=== PATIENT | female | born 1980 | race Caucasian/White ===

== ENCOUNTER → 2016-12-24 | Outpatient (CLI) | payer OTHER ==
[~2016-12-24] MED LIST: ASCO10003 PO; MULT-506 PO; NITR1CAP16 PO; OMEG10007 PO; OMEP40CA41 PO; PHEN-876 PO; PRED20TA PO; PROB1TAB16 PO; VITAMIN D PO; [UNRECOGNIZED DRUG - OTHER] PO
[2016-12-24 14:08] LABS: URINE APPEARANCE CLEAR (CLEAR); URINE BILIRUBIN NEG (NEG); URINE COLOR YELLOW; URINE NITRITE NEG (NEG); URINE SPECIFIC GRAVITY 1.009 (1.000-1.030); UROBILINOGEN NEG (NEG)
[2016-12-24 14:23] LABS: MANUAL MICROSCOPIC REQUIRED? NO; REVIEW REQ? NO
[2016-12-29 09:57] LABS: CHLAMYDIA TRACH RNA*** NOT DETECTED (NOT DETECTED); GC (NEIS GONORRHOEAE)RNA** NOT DETECTED (NOT DETECTED)
== END | disposition home or self-care (01) ==
LOC: C.LABSPEC 13:29
PROVIDERS: ATTEND Physician Assistant
DX: R30.0 Dysuria (principal); N94.89 Other specified conditions associated with female genital organs and menstrual cycle

== ENCOUNTER 2016-12-26 23:41 | Emergency (ER) | payer OTHER ==
[~2016-12-26] VITALS: Ht 167.6 cm; Wt 62.3 kg
[~2016-12-26 23:41] MED LIST changes: -NITR1CAP16 PO; -OMEG10007 PO; -PHEN-876 PO; -PRED20TA PO; -[UNRECOGNIZED DRUG - OTHER] PO
[2016-12-26 23:48] VITALS: TEMP 37; Ht 167.6 cm; Wt 62.3 kg
[2016-12-27] MEDS ORDERED: SODIUM CHLORIDE 0.9% 1000ML 1,000 ML IV STA (00:14)
[2016-12-27 00:36] LABS: BASO ABS # 0.07 K/uL (0-0.2); COMPLETE YES; EOS % 1.3 %; HEMATOCRIT 39.6 % (37-47); IG% 0.1 %; LYMPH % 42.7 %; LYMPH ABS # 2.94 K/uL (1.2-3.4); MEAN CELL VOLUME 96.4 fL (80-100); MEAN CORPUSCULAR HEMOGLOBIN 33.6 pg (25-34); MEAN CORPUSCULAR HGB CONC 34.8 g/dl (32-36); MEAN PLATELET VOLUME 8.9 fL (7.4-10.4); MONO % 11.2 %; NEUT % 43.7 %; PLATELET COUNT 297 K/uL (130-400); RED BLOOD COUNT 4.11 M/uL (4.2-5.4); WHITE BLOOD COUNT 6.89 K/uL (4.8-10.8)
[2016-12-27] MEDS ORDERED: NITR1CAP16 PO (00:36)
[2016-12-27] MEDS ORDERED: PHEN-876 PO (00:37)
[2016-12-27] MEDS ORDERED: [UNRECOGNIZED DRUG - OTHER] PO (00:39)
[2016-12-27 01:00] LABS: URINE APPEARANCE CLEAR (CLEAR); URINE BILIRUBIN NEG (NEG); URINE COLOR DK YELLOW; URINE EPITHELIAL CELL AUTO 0-5 /lpf (0-5); URINE NITRITE POS (NEG); URINE PH 6.5 (4.5-7.5); URINE SPECIFIC GRAVITY 1.009 (1.000-1.030); UROBILINOGEN NEG (NEG); ZZUR CULT IF INDIC CLEAN CATCH NO
[2016-12-27 01:01] LABS: BUN/CREATININE RATIO 17.2 (10-20); CALCIUM 8.6 mg/dl (8.5-10.1); CREATININE 0.79 mg/dl (0.60-1.20); POTASSIUM 3.5 mmol/L (3.5-5.1)
[2016-12-27 01:02] LABS: MANUAL MICROSCOPIC REQUIRED? NO; REVIEW REQ? NO
[2016-12-27 01:03] LABS: PREG INTERNAL NEGATIVE QC NEG CLEAR BACKGROUND; PREG INTERNAL POSITIVE QC POS CONTROL LINE
--- NOTE | 2016-12-27 03:17 | EMERGENCY ROOM VISIT NOTE ---
History First contact with patient: 00:04 Chief Complaint: ABDOMINAL PAIN Stated Complaint: ABDOMINAL AND PELVIC PAIN RIGHT SIDE History of Present Illness The patient is a 36 year old female who presents to the Emergency Room with complaints of urinary frequency with suprapubic discomfort for the past 4 days who saw urgent care and was given antibiotics possible UTI and then saw [facility] and had a pelvic exam and cultures done that are still pending. Patient is in a monogamous relationship. She does not feel at risk for STIs. She describes the pain as discomfort, 4-10. Nothing makes it better or worse. No history of similar symptoms in the past. No rashes. Patient denies chest pain , dyspnea, fever, chills, vomiting, diarrhea, vaginal itching or discharge, back pain, flank pain, upper abdominal pain. Review of Systems See HPI for pertinent positives & negatives. A total of 10 systems reviewed and were otherwise negative. Past Medical/Surgical History Ulcerative colitis Social History Smoking Status: Never Smoker Smokeless Tobacco Use: No Alcohol Use: occasionally Drug Use: none Marital Status: Housing Status: lives with family Current/Historical Medications Scheduled Multivitamin (Multivitamin), 1 TAB PO QAM Nitrofurantoin Monohyd Macro (Macrobid), 100 MG PO BID [Juice Plus Caps], 6 CAP PO DAILY Scheduled PRN Phenazopyridine HCl (Pyridium), 200 MG PO TID PRN for Bladder pain Allergies Coded Allergies: Mesalamine (Verified Allergy, Unknown, CANASA, 09/14/14) Penicillins (Verified Allergy, Unknown, AMOXICILLIN, 09/14/14) NSAIDs (Verified Adverse Reaction, Unknown, CAN'T TAKE DUE TO COLITIS, ) Physical Exam Vital Signs Date Time Temp Pulse Resp B/P Pulse Ox O2 Delivery O2 Flow Rate FiO2 12/27/16 01:23 80 16 99/69 95 Room Air 12/26/16 23:48 37.0 74 18 137/82 95 Room Air Physical Exam VITALS: Vitals are noted on the nurse's note and reviewed by myself. Vital signs stable. GENERAL: Pleasant female, in no acute distress, nondiaphoretic, well-developed well-nourished. SKIN: The skin was without rashes, erythema, edema, or bruising. There is no tenting of the skin. Capillary reflex less than 2 seconds. HEAD: Normocephalic atraumatic. EARS: External auditory canals clear, tympanic membranes pearly feldman without erythema or effusion bilaterally. EYES: Pupils equal round and reactive to light and accommodation. Conjunctivae without injection, sclerae without icterus. Extraocular movements intact. NOSE: Patent, turbinates without inflammation or discharge. MOUTH: Mucous membranes moist. Pharynx without erythema or exudate. Uvula midline. Airway patent. Tongue does not deviate. NECK: Supple without nuchal rigidity. No lymphadenopathy. No thyromegaly. Cervical spine is nontender. No JVD. HEART: Regular rate and rhythm without murmurs gallops or rubs. LUNGS: Clear to auscultation bilaterally without wheezes, rales or rhonchi. No dullness to percussion. No retractions or accessory muscle use. ABDOMEN: Positive bowel sounds x 4. Normal tympanic percussion. Soft, tender to palpation right lower suprapubic area, no CVA tenderness, without masses or organomegaly. Ball sign negative. No guarding or rebound tenderness. exam: Normal external female genitalia without rashes, slightly erythematous cervix, right adnexal tender to palpation easily reproducing symptoms, no CMT tenderness. 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 MUSCULOSKELETAL: No muscle atrophy, erythema, or edema noted. NEURO: Patient was alert and oriented to person place and time. Normal sensation to light and sharp touch. No focal neurological deficits. Medical Decision & Procedures Laboratory Results 12/27/16 00:05 Red Blood Count 4.11, Mean Corpuscular Volume 96.4, Mean Corpuscular Hemoglobin 33.6, Mean Corpuscular Hemoglobin Concent 34.8, Mean Platelet Volume 8.9, Neutrophils (%) (Auto) 43.7, Lymphocytes (%) (Auto) 42.7, Monocytes (%) (Auto) 11.2, Eosinophils (%) (Auto) 1.3, Basophils (%) (Auto) 1.0, Neutrophils # (Auto ) 3.01, Lymphocytes # (Auto) 2.94, Monocytes # (Auto) 0.77, Eosinophils # (Auto ) 0.09, Basophils # (Auto) 0.07 12/27/16 00:05 Test 12/27/16 00:00 12/27/16 00:05 Urine Color DK YELLOW Urine Appearance CLEAR (CLEAR) Urine pH 6.5 (4.5-7.5) Urine Specific Sheldon 1.009 (1.000-1.030) Urine Protein NEG (NEG) Urine Glucose (UA) NEG (NEG) Urine Ketones NEG (NEG) Urine Occult Blood NEG (NEG) Urine Nitrite POS (NEG) Urine Bilirubin NEG (NEG) Urine Urobilinogen NEG (NEG) Urine Leukocyte Esterase NEG (NEG) Urine WBC (Auto) 0 /hpf (0-5) Urine RBC (Auto) 10-30 /hpf (0-4) Urine Hyaline Casts (Auto) 0 /lpf (0-5) Urine Epithelial Cells (Auto) 0-5 /lpf (0-5) Urine Bacteria (Auto) NEG (NEG) White Blood Count 6.89 K/uL (4.8-10.8) Red Blood Count 4.11 M/uL (4.2-5.4) Hemoglobin 13.8 g/dL (12.0-16.0) Hematocrit 39.6 % (37-47) Mean Corpuscular Volume 96.4 fL (80-100) Mean Corpuscular Hemoglobin 33.6 pg (25-34) Mean Corpuscular Hemoglobin Concent 34.8 g/dl (32-36) Platelet Count 297 K/uL (130-400) Mean Platelet Volume 8.9 fL (7.4-10.4) Neutrophils (%) (Auto) 43.7 % Lymphocytes (%) (Auto) 42.7 % Monocytes (%) (Auto) 11.2 % Eosinophils (%) (Auto) 1.3 % Basophils (%) (Auto) 1.0 % Neutrophils # (Auto) 3.01 K/uL (1.4-6.5) Lymphocytes # (Auto) 2.94 K/uL (1.2-3.4) Monocytes # (Auto) 0.77 K/uL (0.11-0.59) Eosinophils # (Auto) 0.09 K/uL (0-0.5) Basophils # (Auto) 0.07 K/uL (0-0.2) RDW Standard Deviation 43.1 fL (36.4-46.3) RDW Coefficient of Variation 12.3 % (11.5-14.5) Immature Granulocyte % (Auto) 0.1 % Immature Granulocyte # (Auto) 0.01 K/uL (0.00-0.02) Anion Gap 8.0 mmol/L (3-11) Est Creatinine Clear Calc Drug Dose 90.3 ml/min Estimated GFR () 110.1 Estimated GFR (Non- 95.0 BUN/Creatinine Ratio 17.2 (10-20) Calcium Level 8.6 mg/dl (8.5-10.1) Human Chorionic Gonadotropin, Qual NEG (NEG) Medications Administered Medications (Trade) Dose Ordered Sig/Ronit Route Start Time Stop Time Status Last Admin Dose Admin Sodium Chloride (Nss 1000ml) 1,000 ml @ 125 mls/hr Q8H STAT IV 12/27/16 00:14 12/27/16 08:13 12/27/16 00:30 125 MLS/HR ED Course Prior records/ancillary studies reviewed. Triage Nursing notes reviewed. The patient's history was concerning for suprapubic abdominal pain. Differential diagnosis: Etiologies such as ovarian cyst, ovarian torsion, cystocele, rectocele, appendicitis, diverticulitis, PUD, biliary pathology, UTI, pancreatitis, obstruction, mesenteric ischemia, aortic pathology, infections, inflammatory bowel disease, renal colic, as well as others were entertained. Physical examination findings: As above. ER treatment provided: By mouth fluids On reassessment the patient felt better. Diagnostics interpreted by me: The labs revealed no worrisome leukocytosis or electrolyte abnormality. Negative hCG. Hematuria urinalysis Imaging studies: Ultrasound concerning for right corpus luteal cyst of the right ovary. Negative renal ultrasound per radiology Exam and history seem consistent with right ovarian cyst. Patient had reproducible pain on clinical exam during exam. Right adnexal was exquisitely tender to palpation. HCG is negative. No signs of PID. She is advised to follow back up with her [facility] this week or here in the ER sooner for pain, fevers, stretch, worsening signs or symptoms or as needed. Patient did not have acute abdomen on exam. She is well-appearing. She is in a monogamous relationship and does not feel at risk for STIs. By the evaluation outlined above emergent etiologies such as appendicitis, diverticulitis, PUD, biliary pathology, UTI, pancreatitis, obstruction, mesenteric ischemia, aortic pathology, infections, inflammatory bowel disease, renal colic, as well as others were deemed relatively unlikely. The pt informed about the findings as listed above. All questions were answered and pleased with the treatment. Return instructions were outlined and the patient was discharged in stable condition. Referral: The patient was referred back to their primary care physician and [facility] for follow-up in 2 to 3 days for a recheck of the current condition. Case reviewed with my attending Medical Decision As above Impression Primary Impression: Right ovarian cyst Additional Impression: Suprapubic abdominal pain Departure Information Dispostion Home / Self-Care Condition GOOD Referrals Armand Gaines DO (PCP) Patient Instructions My [facility] Additional Instructions Ibuprofen(Motrin, Advil) may be used for fever or pain. Use 600mg every six hours as needed. Take with food. Avoid using more than 2400mg in a 24 hour period. Do not use 2400mg per day for more than three consecutive days without physician direction. Prolonged inappropriate use can lead to stomach upset or ulcers. (AND/OR) Acetaminophen(Tylenol) may be used for fever or pain. Use 1000mg every six hours as needed. Avoid using more than 3000mg in a 24 hour period. Rest and drink plenty of fluids as tolerated. Continue current medications. Avoid strenuous activities and anything that worsens your pain. Resume normal activities once your symptoms resolve. Return to the ER immediately for worsening or persistent abdominal pain, vomiting, fevers, chest pains, difficulty breathing, worsening of your condition , or as needed. Follow up with your primary physician and [facility] in 2-3 days for a recheck of your current condition. Problem Qualifiers
[2016-12-27] MEDS ORDERED: LIDOCAINE HCL 2% JELLY 30 ML TUBE EXT ONE (03:45)
[2016-12-27 04:04] VITALS: BP 116/72; PULSE 66; O2SAT 96
--- NOTE | 2016-12-27 09:09 | DIAGNOSTIC IMAGING REPORT ---
PELVIC ULTRASOUND CLINICAL HISTORY: Right pelvic pain. COMPARISON STUDY: CT of the abdomen and pelvis August 17, 2014. TECHNIQUE: Transabdominal and transvaginal sonography of the pelvis was performed. FINDINGS: The uterus measures 7.8 x 4.3 x 5 cm. The endometrium measures 7 mm in thickness. The right ovary measures 3.1 x 1.8 x 2.2 cm contains a 1.6 cm complex lesion. The left ovary measures 2.6 x 1.5 x 1.9 cm. There is color flow within each ovary. There is trace fluid within the pelvis. IMPRESSION: 1. Unremarkable sonographic appearance of the uterus and left ovary. 2. 1.6 cm corpus luteal/hemorrhagic cyst within the right ovary. 3. Trace fluid within the pelvis which is likely physiologic. Electronically signed by: Oc Hill M.D. 12/27/2016 9:07 AM Dictated Date/Time: 12/27/2016 9:06 AM
--- NOTE | 2016-12-27 09:21 | DIAGNOSTIC IMAGING REPORT ---
RENAL ULTRASOUND CLINICAL HISTORY: Hematuria. Right lower quadrant pain. COMPARISON STUDY: CT of the abdomen and pelvis August 17, 2017. TECHNIQUE: Sonography of the kidneys and the urinary bladder was performed. FINDINGS: The right kidney measures 10.6 x 4.6 x 5.3 cm and the left measures 10.5 x 5.6 x 4.6 cm. There is no hydronephrosis. No calculi are identified by sonography. Both ureteral jets were identified. IMPRESSION: Normal renal ultrasound. No hydronephrosis. Electronically signed by: Oc Hill M.D. 12/27/2016 9:20 AM Dictated Date/Time: 12/27/2016 9:19 AM
== END 2016-12-27 04:05 | disposition home or self-care (01) ==
LOC: C.EDB 23:42 → C.EDA 12-27 04:05
DX: N83.201 Unspecified ovarian cyst, right side (principal); R10.30 Lower abdominal pain, unspecified; Z87.19 Personal history of other diseases of the digestive system

== ENCOUNTER → 2017-01-04 | Outpatient (CLI) | payer OTHER ==
[~2017-01-04] MED LIST changes: -ASCO10003 PO; +NITR1CAP16 PO; +OMEG10007 PO; -OMEP40CA41 PO; +PHEN-876 PO; +PRED20TA PO; -PROB1TAB16 PO; -VITAMIN D PO; +[UNRECOGNIZED DRUG - OTHER] PO
[2017-01-04 17:07] LABS: URINE APPEARANCE CLEAR (CLEAR); URINE BILIRUBIN NEG (NEG); URINE COLOR YELLOW; URINE EPITHELIAL CELL AUTO 0-5 /lpf (0-5); URINE NITRITE NEG (NEG); URINE SPECIFIC GRAVITY 1.012 (1.000-1.030); UROBILINOGEN NEG (NEG)
[2017-01-04 17:15] LABS: MANUAL MICROSCOPIC REQUIRED? NO; REVIEW REQ? NO
== END | disposition home or self-care (01) ==
LOC: C.LAB1850 14:06
PROVIDERS: ATTEND Obstetrics & Gynecology
DX: R35.0 Frequency of micturition (principal); N76.0 Acute vaginitis; Z31.41 Encounter for fertility testing

== ENCOUNTER 2017-01-12 08:26 | Emergency (ER) | payer OTHER ==
[~2017-01-12] VITALS: Ht 167.6 cm; Wt 60.3 kg
[~2017-01-12 08:26] MED LIST changes: -OMEG10007 PO; -PRED20TA PO
[2017-01-12 08:28] VITALS: TEMP 36.6; Ht 167.6 cm; Wt 60.3 kg
[2017-01-12] MEDS ORDERED: RANITIDINE HCL 50 MG/100 ML D5W IV STA (08:42)
[2017-01-12] MEDS ORDERED: METHYLPREDNISOLONE 125 MG VIAL IV STA (08:42)
[2017-01-12] MEDS ORDERED: DiphenhydrAMINE HCL 50 MG/ML VIAL IV STA (08:42)
--- NOTE | 2017-01-12 09:02 | EMERGENCY ROOM VISIT NOTE ---
History Report prepared by Ivory: Dmitriy Hdz Under the Supervision of: Dr. Lavon Renner D.O. First contact with patient: 08:41 Chief Complaint: ALLERGIC REACTION Stated Complaint: HIVES, SWELLING, ITCHING Nursing Triage Summary: pt reports hives started on Sat. denies difficulty breathing or swallowing, last benedryl 0200 stopped macrobid on Sun. History of Present Illness The patient is a 36 year old female who presents to the Emergency Room with complaints of worsening/spreading diffuse hives that began on Wednesday, three days prior to arrival. The patient states that her symptoms began on Wednesday when she became diffusely itchy. He started to notice the rash on Wednesday. She denies experiencing any swelling of the throat or tongue, or experiencing shortness of breath. The patient also denies using any new soaps, detergents, or strange foods. She did note that she recently started taking Macrobid, but was advised to stop this medication when the itching began. 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 A total of 10 systems reviewed and were otherwise negative. Past Medical & Surgical Medical Problems: (1) Ulcerative colitis Family History Cancer Gallbladder disease Heart disease Hypertension Kidney disease Social History Smoking Status: Never Smoker Alcohol Use: occasionally Drug Use: none Marital Status: Housing Status: lives with family Current/Historical Medications Scheduled Fish Oil (Stanwood-3), 1 CAP PO DAILY Multivitamin (Multivitamin), 1 TAB PO QAM Prednisone (Prednisone), 2 TAB PO DAILY [Juice Plus Caps], 6 CAP PO DAILY Allergies Coded Allergies: Mesalamine (Verified Allergy, Unknown, CANASA, 01/12/17) Penicillins (Verified Allergy, Unknown, AMOXICILLIN, 01/12/17) NSAIDs (Verified Adverse Reaction, Unknown, CAN'T TAKE DUE TO COLITIS, ) Physical Exam Vital Signs Date Time Temp Pulse Resp B/P (MAP) Pulse Ox O2 Delivery O2 Flow Rate FiO2 01/12/17 09:47 71 16 111/72 100 01/12/17 08:28 36.6 76 18 116/82 100 Room Air Physical Exam CONSTITUTIONAL/VITAL SIGNS: Reviewed / noted above. GENERAL: Non-toxic in appearance. INTEGUMENTARY: There is a diffuse and global urticarial rash present. Warm, dry , and Tracy. HEAD: Normocephalic. EYES: without scleral icterus or trauma. ENT/OROPHARYNX: clear and moist. LYMPHADENOPATHY/NECK: Is supple without lymphadenopathy or meningismus. RESPIRATORY: Lungs clear and equal. CARDIOVASCULAR: Regular rate and rhythm. GI/ABDOMEN: Soft and nontender. No organomegaly or pulsatile mass. No rebound or guarding. Normal bowel sounds. EXTREMITIES: Warm and well perfused. BACK: No CVA tenderness. NEUROLOGICAL: Intact without focal deficits. PSYCHIATRIC: normal affect. MUSCULOSKELETAL: Normally developed with good muscle tone. Medical Decision & Procedures Laboratory Results 01/12/17 08:50 01/12/17 08:50 Test 01/12/17 08:10 01/12/17 08:50 Lyme Disease IgG Antibody NEG (NEG) Lyme Disease IgM Antibody NEG (NEG) Red Blood Count 4.58 M/uL (4.2-5.4) Mean Corpuscular Volume 95.0 fL (80-100) Mean Corpuscular Hemoglobin 33.4 pg (25-34) Mean Corpuscular Hemoglobin Concent 35.2 g/dl (32-36) RDW Standard Deviation 42.5 fL (36.4-46.3) RDW Coefficient of Variation 12.3 % (11.5-14.5) Mean Platelet Volume 8.7 fL (7.4-10.4) Anion Gap 9.0 mmol/L (3-11) Est Creatinine Clear Calc Drug Dose 95.1 ml/min Estimated GFR () 117.2 Estimated GFR (Non- 101.1 BUN/Creatinine Ratio 14.1 (10-20) Calcium Level 8.7 mg/dl (8.5-10.1) Laboratory results as stated above per my review. Medications Administered Medications (Trade) Dose Ordered Sig/Ronit Route Start Time Stop Time Status Last Admin Dose Admin Ranitidine HCl (zANTac IV) 50 mg NOW STAT IV 01/12/17 08:42 01/12/17 08:43 DC 01/12/17 08:59 50 MG Diphenhydramine HCl (Benadryl Inj) 25 mg NOW STAT IV 01/12/17 08:42 01/12/17 08:43 DC 01/12/17 08:59 25 MG ED Course 0919: Previous medical records were reviewed. The patient was evaluated in room B9. A complete history and physical examination was performed. 0842: Ordered Benadryl 25 mg IV, Solu-Medrol 125 mg IV, Ranitidine HCl 50 mg IV. 1049: I reevaluated the patient at this time On reevaluation, the patient is resting in bed. I discussed the results and findings with the patient. She verbalized agreement of the treatment plan. The patient was discharged home. Medical Decision Blood pressure Screening: Patient was found to have normal blood pressure on screening and does not require follow-up. Differential diagnosis: Etiologies such as contact dermatitis, viral exanthem, urticaria, allergic reaction, Garay-Niranjan syndrome, toxic epidermal necrolysis, erythema multiforme, cellulitis, scabies, HSV, varicella, zoster, eczema, staph scalded skin syndrome, fungal infection, as well as others were entertained. This is a 28-year-old female who presents to the ED with a chief complaint of a hive-like rash on her body. The patient states that she took Macrobid over week ago and then took a second course of Macrobid starting the end of last week. She started feeling a little itchy on Wednesday and on Wednesday noticed hives. She stopped the medication Macrobid on Wednesday. She denies any other exposures other than a new multivitamin. The patient did take some Benadryl with some relief on Wednesday but less relief today and yesterday. She reports also having taken some Zantac. The patient's exam reveals a hive-like rash on her chest, back and proximal upper extremities. She denies any shortness of breath or mucosal irritation or swelling. Her exam reveals the rash on her body without mucosal irritation. She was given IV Benadryl and IV Zantac. There was some lessening of the redness. It did not completely resolve. The patient was told the results of her tests. Her CBC, PRP and Lyme was normal. The patient did not want to use steroids because she is trying to get and states that she ovulated this weekend. The test was negative but the patient declined a steroid at this time due to it being class C. The patient will be given a prescription for prednisone if she decides that her symptoms are not improving or worsen despite Benadryl and Zantac at home. She is felt to be stable for discharge. Impression Primary Impression: Allergic reaction Scribe Attestation The scribe's documentation has been prepared under my direction and personally reviewed by me in its entirety. I confirm that the note above accurately reflects all work, treatment, procedures, and medical decision making performed by me. Departure Information Dispostion Home / Self-Care Prescriptions Prednisone (Prednisone) 20 Mg Tab 2 TAB PO DAILY for 4 Days, #8 TAB Prov: Lavon Renner D.O. 01/12/17 Referrals Armand Gaines DO (PCP) Patient Instructions My [facility] Additional Instructions Take Benadryl 25-50 mg every 6 hours for hives and itching. Take Zantac. Prednisone as prescribed if symptoms worsen or persist. Follow-up with your doctor for recheck. Anticipate improvement of symptoms over the next 3-4 days.
[2017-01-12 09:13] LABS: HEMATOCRIT 43.5 % (37-47); MEAN CORPUSCULAR HEMOGLOBIN 33.4 pg (25-34); MEAN CORPUSCULAR HGB CONC 35.2 g/dl (32-36); MEAN PLATELET VOLUME 8.7 fL (7.4-10.4); PLATELET COUNT 317 K/uL (130-400); RED BLOOD COUNT 4.58 M/uL (4.2-5.4); WHITE BLOOD COUNT 11.62 K/uL (4.8-10.8)
[2017-01-12] MEDS ORDERED: OMEG10007 PO (09:16)
[2017-01-12 09:31] LABS: BUN/CREATININE RATIO 14.1 (10-20); CREATININE 0.75 mg/dl (0.60-1.20); POTASSIUM 3.9 mmol/L (3.5-5.1)
[2017-01-12 09:36] LABS: CALCIUM 8.7 mg/dl (8.5-10.1)
[2017-01-12 10:13] LABS: LYME DISEASE AB IGG NEG (NEG); LYME DISEASE AB IGM NEG (NEG)
[2017-01-12] MEDS ORDERED: PRED20TA PO (10:58)
[2017-01-12 11:11] VITALS: BP 97/53; PULSE 65; O2SAT 99
== END 2017-01-12 11:11 | disposition home or self-care (01) ==
LOC: C.EDB 08:28
DX: T78.40XA Allergy, unspecified, initial encounter (principal); X58.XXXA Exposure to other specified factors, initial encounter; Z87.19 Personal history of other diseases of the digestive system; Z88.0 Allergy status to penicillin; Z88.8 Allergy status to other drugs, medicaments and biological substances; Z80.9 Family history of malignant neoplasm, unspecified; Z83.79 Family history of other diseases of the digestive system; Z82.49 Family history of ischemic heart disease and other diseases of the circulatory system; Z84.1 Family history of disorders of kidney and ureter

== ENCOUNTER → 2017-01-21 | Outpatient (CLI) | payer OTHER ==
[~2017-01-21] MED LIST changes: -NITR1CAP16 PO; +OMEG10007 PO; -PHEN-876 PO
== END | disposition home or self-care (01) ==
LOC: C.LAB 10:35
PROVIDERS: ATTEND Obstetrics & Gynecology
DX: Z31.41 Encounter for fertility testing (principal); Z32.00 Encounter for pregnancy test, result unknown

== ENCOUNTER → 2017-01-25 | Outpatient (CLI) | payer OTHER | END | disposition home or self-care (01) | LOC: C.LAB 12:02 | PROVIDERS: ATTEND Obstetrics & Gynecology | DX: Z33.1 Pregnant state, incidental (principal) ==

== ENCOUNTER → 2017-02-22 | Outpatient (CLI) | payer OTHER ==
[2017-02-22 12:33] LABS: BASO % 0.5 %; BASO ABS # 0.04 K/uL (0-0.2); COMPLETE YES; EOS % 0.9 %; HEMATOCRIT 38.6 % (37-47); IG% 0.1 %; LYMPH % 20.4 %; LYMPH ABS # 1.76 K/uL (1.2-3.4); MEAN CELL VOLUME 93.2 fL (80-100); MEAN CORPUSCULAR HEMOGLOBIN 33.6 pg (25-34); MEAN PLATELET VOLUME 8.7 fL (7.4-10.4); MONO % 9.2 %; NEUT % 68.9 %; PLATELET COUNT 304 K/uL (130-400); RED BLOOD COUNT 4.14 M/uL (4.2-5.4); WHITE BLOOD COUNT 8.62 K/uL (4.8-10.8)
== END | disposition home or self-care (01) ==
LOC: C.LAB1850 10:26
PROVIDERS: ATTEND Obstetrics & Gynecology
DX: O09.521 Supervision of elderly multigravida, first trimester (principal)

== ENCOUNTER → 2017-02-22 | Outpatient (CLI) | payer OTHER ==
[2017-02-22 14:37] LABS: URINE APPEARANCE CLEAR (CLEAR); URINE BILIRUBIN NEG (NEG); URINE COLOR YELLOW; URINE NITRITE NEG (NEG); URINE SPECIFIC GRAVITY 1.011 (1.000-1.030); UROBILINOGEN NEG (NEG)
[2017-02-22 14:40] LABS: MANUAL MICROSCOPIC REQUIRED? NO; REVIEW REQ? NO
[2017-02-25 02:02] LABS: CHLAMYDIA TRACH RNA*** NOT DETECTED (NOT DETECTED); GC (NEIS GONORRHOEAE)RNA** NOT DETECTED (NOT DETECTED)
== END | disposition home or self-care (01) ==
LOC: C.LABSPEC 13:44
PROVIDERS: ATTEND Obstetrics & Gynecology
DX: O09.521 Supervision of elderly multigravida, first trimester (principal)

== ENCOUNTER → 2017-03-04 | Outpatient (CLI) | payer OTHER ==
[2017-03-07 19:34] LABS: PARVOVIRUS IgG INDEX 5.9 (<0.9); PARVOVIRUS IgM INDEX 0.2 (<0.9)
== END | disposition home or self-care (01) ==
LOC: C.LAB1850 12:26
PROVIDERS: ATTEND Obstetrics & Gynecology
DX: Z20.9 Contact with and (suspected) exposure to unspecified communicable disease (principal)

== ENCOUNTER → 2017-04-20 | Outpatient (CLI) | payer OTHER ==
[2017-04-20 13:13] LABS: GTGD 50 Grams
[2017-04-21 14:12] LABS: AFP CONCENTRATION 20.6 NG/ML; AFP MULTIPLE OF MEDIAN 0.59; AFPTS GESTATIONAL AGE 16.1 WEEKS; AFPTS INSULIN DEP DIABETIC? NO; AFPTS MATERNAL WT 140 LBS; ALPHA-FETOPROTEIN RACE CAUCASIAN=W; HISTORY OF NTD NO; REPEAT SAMPLE? NO
== END | disposition home or self-care (01) ==
LOC: C.LAB1850 10:37
PROVIDERS: ATTEND Obstetrics & Gynecology
DX: O09.522 Supervision of elderly multigravida, second trimester (principal)

== ENCOUNTER → 2017-07-12 | Outpatient (CLI) | payer OTHER ==
[2017-07-12 11:30] LABS: URINE APPEARANCE CLEAR (CLEAR); URINE BILIRUBIN NEG (NEG); URINE COLOR YELLOW; URINE NITRITE NEG (NEG); URINE PH 8.5 (4.5-7.5); UROBILINOGEN NEG (NEG)
[2017-07-12 11:32] LABS: MANUAL MICROSCOPIC REQUIRED? NO; REVIEW REQ? NO
[2017-07-12 12:24] LABS: HEMATOCRIT 33.9 % (37-47)
[2017-07-12 12:45] LABS: GTGD 50 Grams
== END | disposition home or self-care (01) ==
LOC: C.LAB 10:51
PROVIDERS: ATTEND Obstetrics & Gynecology
DX: O09.523 Supervision of elderly multigravida, third trimester (principal)

== ENCOUNTER → 2017-09-06 | Outpatient (CLI) | payer OTHER | END | disposition home or self-care (01) | LOC: C.LABSPEC 13:09 | PROVIDERS: ATTEND Obstetrics & Gynecology | DX: O09.523 Supervision of elderly multigravida, third trimester (principal) ==

== ENCOUNTER 2017-10-08 17:41 | Inpatient (IN) | payer OTHER ==
[~2017-10-08] VITALS: Ht 167.6 cm; Wt 75.5 kg
[2017-10-08] MEDS ORDERED: LACTATED RINGER'S 1000ML 1,000 ML IV SCH (18:06)
[2017-10-08] MEDS ORDERED: LACTATED RINGER'S 1000ML 1,000 ML IV PRN (18:06)
[2017-10-08 18:39] VITALS: Ht 167.6 cm; Wt 75.5 kg
[2017-10-08 18:48] LABS: HEMATOCRIT 34.2 % (37-47); HEMOGLOBIN 12.5 g/dL (12.0-16.0); MEAN CELL VOLUME 90.7 fL (80-100); MEAN CORPUSCULAR HEMOGLOBIN 33.2 pg (25-34); MEAN PLATELET VOLUME 9.1 fL (7.4-10.4); PLATELET COUNT 285 K/uL (130-400); RED CELL DISTRIBUTION WIDTH CV 12.4 % (11.5-14.5); RED CELL DISTRIBUTION WIDTH SD 41.1 fL (36.4-46.3); WHITE BLOOD COUNT 13.16 K/uL (4.8-10.8)
[2017-10-08] MEDS ORDERED: EpHEDrine SULFATE INJ 50 MG/ML AMP ONE (18:52)
[2017-10-08] MEDS ORDERED: BUPIVACAINE 0.25% 30 ML VIAL ONE (18:52)
[2017-10-08] MEDS ORDERED: FENTANYL 2MCG/ML ROPIV 1.25MG/ML 100ML BAG EPI ONE (18:53)
[2017-10-08] MEDS ORDERED: FENTANYL CITRATE INJ 50 MCG/1 ML 2 ML VIAL ONE (18:53)
[2017-10-08] MEDS ORDERED: OXYTOCIN 30 UNITS/500ML NSS IV ONE (19:14)
[2017-10-08] MEDS ORDERED: LACTATED RINGER'S 1000ML 500 ML IV PRN (19:48)
[2017-10-08] MEDS ORDERED: NALOXONE HCL INJ 1 MG in SODIUM CHLORIDE 0.9% 1000ML 1,000 ML IV PRN (19:48)
[2017-10-08 19:49] LABS: MEAN CORPUSCULAR HGB CONC 36.5 g/dl (32-36)
[2017-10-08] MEDS ORDERED: NALBUPHINE HCL INJ 10 MG/ML AMP IV PRN (20:00)
[2017-10-08] MEDS ORDERED: EpHEDrine SULFATE INJ 50 MG/ML AMP IV PRN (20:00)
[2017-10-08] MEDS ORDERED: FENTANYL 2MCG/ML ROPIV 1.25MG/ML 100ML BAG EPI PRN (20:00)
[2017-10-08] MEDS ORDERED: DiphenhydrAMINE HCL 50 MG/ML VIAL IV PRN (20:00)
[2017-10-08] MEDS ORDERED: NALOXONE HCL INJ 0.4 MG/1 ML VIAL/CARP IV PRN (20:00)
[2017-10-08] MEDS ORDERED: ONDANSETRON INJ 2 MG/ML 2 ML VIAL IV PRN (20:00)
[2017-10-08] MEDS ORDERED: VARICELLA VIRUS VACCINE LIVE 1 VIAL SQ. ONE (21:00)
[2017-10-08] MEDS ORDERED: DIPHTHERIA/TETANUS/PERTUSSIS 0.5 ML SYR/VIAL IM. ONE (21:00)
[2017-10-08] MEDS ORDERED: SUPERCREAM 0.870 % 15GM JAR EXT PRN (21:00)
[2017-10-08] MEDS ORDERED: ACETAMINOPHEN 325 MG TAB PO PRN (21:00)
[2017-10-08] MEDS ORDERED: OXYTOCIN 30 UNITS/500ML NSS IV PRN (21:00)
[2017-10-08] MEDS ORDERED: HYDROCORTISONE ACETATE 25 MG SUPP PR PRN (21:00)
[2017-10-08] MEDS ORDERED: LANOLIN OINT EXT PRN (21:00)
[2017-10-08] MEDS ORDERED: BENZOCAINE 20% AER SPR 82.5 GM CAN EXT PRN (21:00)
[2017-10-08] MEDS ORDERED: OXYCODONE/ACETAMINOPHEN 5-325 TAB PO PRN (21:00)
--- NOTE | 2017-10-08 22:34 | DELIVERY SUMMARY ---
DATE OF OPERATION: 10/08/2017 The patient is a 37-year-old 3, para 2-0-0-2 white female who presents with regular contractions starting approximately at 1400 hours today. She had had an increase in discharge, bloody show and possible leaking fluid. She presented to labor and delivery and was noted to be 4 cm dilated, 80% effaced and -2 station evidence of ruptured membranes was equivocal. She progressed in labor, requested epidural analgesia and then clearly had rupture of membranes for clear fluid when setting up for the epidural. She progressed to full dilatation under epidural analgesia and pushed effectively for delivery of a viable female . Mouth and nasopharynx were suctioned on the perineum. Rest of the delivered easily and was vigorous. She was placed on the mother's abdomen for further stimulation and evaluation. The cord was clamped and cut. Cord blood was obtained. The placenta was expressed intact with a 3-vessel cord. There was a very superficial labial abrasion present that was not bleeding and was not repaired. Estimated blood loss was 200 mL. Mother and were doing well after delivery. I attest to the content of the Intraoperative Record and any orders documented therein. Any exceptions are noted below. MTDD
[2017-10-09] VITALS (7 sets, daily range): BP systolic 102–115; BP diastolic 61–72; PULSE 65–82; TEMP 36.8–37.2
--- NOTE | 2017-10-09 06:51 | Progress Note ---
Subjective Oct 09, 2017. Subjective conversation w/ patient, physical exam Ambulation: ambulating normally Voiding: no voiding problems Passing Gas: Yes Diet Tolerance: Regular Diet Lochia: Moderate Feeding Type: Breast Feeding Pain: Minimal pain reported Comment: Pt seen and examined at bedside this AM; no acute events overnight Review of Systems Constitutional: No fever, No chills Respiratory: No cough, No shortness of breath Cardiac: No chest pain, No edema Abdomen: No pain, No nausea, No vomiting Female : No dysuria no headaches or calf tenderness reported Objective Vital Signs Date Time Temp Pulse Resp B/P (MAP) Pulse Ox O2 Delivery O2 Flow Rate FiO2 10/09/17 05:30 37.0 66 18 110/72 (85) Room Air 10/09/17 01:35 Room Air 10/09/17 01:35 37.2 69 16 106/61 (76) Room Air Physical Exam General Appearance: WELL-APPEARING, WD/WN, NO APPARENT DISTRESS Respiratory/Chest: chest non-tender, lungs clear, normal breath sounds Cardiovascular: regular rate, rhythm, no edema, no murmur Abdomen: normal bowel sounds, non tender, soft Fundus: Firm, Non-Tender, Relation to Umbilicus (2-3 cm below, left sided) Extremities: normal range of motion, non-tender, normal inspection, no pedal edema, no calf tenderness Laboratory Results Last 24 Hours Test 10/08/17 18:29 10/09/17 04:44 White Blood Count 13.16 K/uL Red Blood Count 3.77 M/uL Hemoglobin 12.5 g/dL Hematocrit 34.2 % Mean Corpuscular Volume 90.7 fL Mean Corpuscular Hemoglobin 33.2 pg Mean Corpuscular Hemoglobin Concent 36.5 g/dl RDW Standard Deviation 41.1 fL RDW Coefficient of Variation 12.4 % Platelet Count 285 K/uL Mean Platelet Volume 9.1 fL Medications Current Inpatient Medications Medications (Trade) Dose Ordered Sig/Ronit Route Start Time Stop Time Status Last Admin Dose Admin Lactated Ringer's 1,000 ml @ 125 mls/hr Q8H IV 10/08/17 18:06 10/10/17 18:05 Oxytocin (Pitocin IV) 30 units UD PRN IV 10/08/17 21:00 11/07/17 20:59 Benzocaine (Dermoplast Aero Spr) 1 appln PRN PRN EXT 10/08/17 21:00 11/07/17 20:59 Cocaine HCl (Supercream 0.870% Cr) BID PRN EXT 10/08/17 21:00 10/22/17 20:59 Hydrocortisone Acetate (Anusol Hc Supp) 25 mg BID PRN MA 10/08/17 21:00 11/07/17 20:59 Lanolin (Lanolin Oint) PRN PRN EXT 10/08/17 21:00 11/07/17 20:59 Prenat Multivit/ [place]/Iron/Folic Ac ( Vitamin Tab) 1 tab DAILY PO 10/09/17 08:00 11/08/17 07:59 Acetaminophen (Tylenol Tab) 650 mg Q6H PRN PO 10/08/17 21:00 11/07/17 20:59 Oxycodone/ Acetaminophen (Percocet 5-325mg Tab) 1 tab Q4H PRN PO 10/08/17 21:00 10/22/17 20:59 Bisacodyl (Dulcolax Tab) 5 mg 20 PO 10/09/17 20:00 10/09/17 20:01 Bisacodyl (Dulcolax Supp) 10 mg DAILY PRN MA 10/10/17 07:00 Docusate Sodium (coLACE CAP) 100 mg BID PO 10/09/17 08:00 11/08/17 07:59 Ferrous Sulfate (Feosol Tab) 325 mg DAILY PO 10/09/17 08:00 11/08/17 07:59 Multivitamins (Multivitamin Tab) 1 tab QAM PO 10/09/17 08:00 11/08/17 07:59 Assessment and Plan Problem List Medical Problems: (1) Allergic reaction Status: Acute (2) Right ovarian cyst Status: Acute (3) Suprapubic abdominal pain Status: Acute Post- Day#: 1 Continue Routine Care: Resident Physician Supervision Note: I was present with Dr. Pearson during the history and exam. I discussed the case with the resident and agree with the findings and plan as documented in the note. Any exceptions or clarifications are listed here: [None] Documented By: Shwetha Simon 37 yo F PPD #1 s/p Continue routine care Encourage ambulation, breast feeding--discuss latching issues with autism specialist Pain control with Rx prn Resident Tracking Resident Involvement: Resident Care Provided Care Provided: OB Delivery
[2017-10-09] MEDS ORDERED: MULTIVITAMIN TAB PO SCH (08:00)
--- NOTE | 2017-10-09 08:07 | Discharge Instructions ---
Discharge Instructions Date of Service Oct 09, 2017. Admission Reason for Admission: Check Labor Discharge Discharge Diagnosis / Problem: s/p Discharge Goals Goal(s): Routine recovery after delivery Medications Continue Dispensed Medications: supercream, dermaplast, tucks, lansinoh Activity Recommendations Activity Limitations: per Instructions/Follow-up section . Instructions / Follow-Up Instructions / Follow-Up ACTIVITY RECOMMENDATIONS: * Gradual return to full activity over the next 2-3 weeks. * No lifting - nothing heavier than baby over the next 2-3 weeks. * Do not engage in vigorous exercise, sexual activity or sports until cleared by your physician. * Do not drive or operate any motorized equipment until cleared by your physician. * You may shower/bathe daily. MEDICATIONS: For discomfort or pain, you may use Acetaminophen (Tylenol), Ibuprofen (Advil), or Naproxen (Aleve) following the package directions. For constipation you may use Colace following the package directions. BREAST CARE: If you are not breast feeding: * Wear a supportive bra 24 hours a day for one to two weeks. * Avoid stimulating your breasts and nipples as much as possible during the first few weeks after delivery. * When taking a shower, have the warm water hit your back, not breasts. * When your breasts feel full, apply ice packs. Usually three to four times a day helps ease the discomfort. * Take a mild pain medication (Tylenol / Motrin) when you are uncomfortable. If breast feeding: * Use breast milk to lubricate nipples. Lansinoh cream may be used for sore nipples. You do not need to remove cream prior to breast feeding. If using a different brand of cream, check the label for directions regarding removal of cream prior to nursing. * Wear a supportive bra. * If having problems with breasts or breast feeding, call a talent acquisition consultant or your health care provider. EPISIOTOMY CARE: After delivery, if you have an episiotomy (stitches), the following steps will ease discomfort and aid healing. * For the first 24 hours after delivery, place ice packs next to your episiotomy to help reduce swelling. * After the first 24 hour-period, sitz baths, either portable or in the tub, are suggested. A shower with a shower arm sprayed over the episiotomy may be comforting. * Abigail care should be done after each voiding and bowel movement. Squirt warm water from a plastic bottle over the perineum (region of the body between the anus and urinary opening) and pat dry. * Use Dermoplast to ease discomfort. Shake container. [place] directly over the episiotomy. Place a Tucks on a clean sanitary pad next to your episiotomy. SPECIAL CARE INSTRUCTIONS: When you are discharged from the hospital, it is important for you to follow the instructions listed below: * During the first week at home, you should be able to care for yourself and your baby. In addition, the usual light household activities are encouraged. * Limit your activities to the way you feel. Do not try to clean the house or move furniture. Be sensible. * If you actively engage in sports and have done so up until the time of your delivery, you may resume these activities as soon as you feel able. This may take up to one month or even longer. Use good judgment. * Continue to take your vitamins for at least six weeks after the of your baby. * Your diet need not be limited unless you were on a special diet before your delivery. Breast-feeding mothers need around 2500 calories per day and at least 64-80 ounces of fluid per day (8 to 10 glasses). * You should eat foods from the four major food groups. Crash diets or fad diets are to be avoided. Eating lean meats, fresh fruits and vegetables, low-fat dairy products, high fiber foods and a regular exercise program, will help you get back to your pre- weight without putting your health at risk. * Constipation is sometimes a problem after delivery. Take a mild laxative as needed. If breast feeding, Milk of Magnesia is acceptable to use. You may use a suppository or Fleets enema if no episiotomy. * A daily shower or tub bath is suggested. Be sure to thoroughly and gently dry the perineum. * A bloody vaginal discharge will usually continue until around four weeks post . A small amount of bleeding may continue for as long as six weeks. Vaginal discharge changes from the bright red bleeding after delivery to pink then brownish and finally yellowish-pink before becoming white and disappearing. * Bleeding may increase with activity. Your first period may come in 4-8 weeks. If you are breast feeding, your period may be delayed even longer. * Eldon (sex) can begin whenever both you and your partner feel comfortable and do not have any form of genital infection. It is recommended that you wait at least six weeks for internal and external healing to occur. If you have questions, please talk to your health care practitioner. A condom should be used to prevent infection and . * Foreplay, gentle intercourse and lubrication is very important the first several times to prevent pain. A water-based lubricant such as K-Y jelly or Astroglide may be used. * If you have RH negative blood and your baby is RH positive, you will receive RHOGAM by injection prior to discharge. The nurse will give you a card to keep with you that has the date and place that you received RHOGAM after delivery. * During your care, you had a Rubella screen done to check for the presence of rubella antibodies in your blood. If your test was negative, you will receive a Rubella vaccine prior to discharge. This vaccine may cause a fever, soreness at the injection site and flu-like symptoms. If these symptoms persist, notify your health care practitioner. is not advised for one month after a Rubella vaccine. * Verbalizes understanding of car seat law as reviewed with patient nursing. * Car Seat hand-out given and reviewed with patient by nursing. * Shaken baby information reviewed with patient by nursing. Call you doctor if: * Heavy bleeding (saturating several pads an hour) or passing clots the size of your fist. * A fever >101 degrees F (38.3 degrees C) on two occasions four hours apart and /or chills. * Unusual pain in the pelvic or vaginal areas. * "Baby Blues" lasting longer than two weeks. If you have any questions or concerns, call your health care practitioner at . FOLLOW UP VISIT: * Please call the office at to schedule a 6 week examination. It is important you keep this appointment. It is important for you to make arrangements for either yearly or twice yearly check-ups thereafter. Current Hospital Diet Patient's current hospital diet: Regular OB Diet Discharge Diet Recommended Diet: Regular OB Diet Pending Studies Studies pending at discharge: no Medical Emergencies . Who to Call and When: Medical Emergencies: If at any time you feel your situation is an emergency, please call 911 immediately. . Non-Emergent Contact Non-Emergency issues call your: Gemologist . . "Provider Documentation" section prepared by Nga Pearson. .
[2017-10-09 08:16] LABS: HEMATOCRIT 32.5 % (37-47); HEMOGLOBIN 11.2 g/dL (12.0-16.0)
[2017-10-09] MEDS: FERROUS SULFATE 325 MG TAB PO SCH (09:27)
[2017-10-09] MEDS: PRENATAL VITAMIN TAB PO SCH (09:27)
[2017-10-09] MEDS: DOCUSATE SODIUM 100 MG CAP PO SCH ×2 (09:28→20:13)
--- NOTE | 2017-10-09 13:28 | Anesthesia Procedure Note ---
Anesthesia Epidural Removal Nt Date & Time Oct 09, 2017 at 13:28 Vital Signs Pain Intensity: 0.0 Vital Signs Past 12 Hours Date Time Temp Pulse Resp B/P (MAP) Pulse Ox O2 Delivery O2 Flow Rate FiO2 10/09/17 11:30 36.8 65 16 115/68 (84) 10/09/17 08:45 Room Air 10/09/17 08:45 36.8 73 16 109/66 (80) 10/09/17 05:30 37.0 66 18 110/72 (85) Room Air 10/09/17 01:35 Room Air 10/09/17 01:35 37.2 69 16 106/61 (76) Room Air Notes Mental Status: alert / awake / arousable, participated in evaluation Nausea / Vomiting: adequately controlled Pain: adequately controlled Airway Patency, RR, SpO2: stable & adequate BP & HR: stable & adequate Hydration State: stable & adequate Neuraxial Anesthesia: was administered, sensory block is resolved Anesthetic Complications: no major complications apparent, pt satisfied with anesthetic care Epidural: removed without complications, with tip intact
[2017-10-09] MEDS ORDERED: BISACODYL 5 MG TABEC PO SCH (20:00)
[2017-10-10] MEDS ORDERED: BISACODYL 10 MG SUPP PR PRN (07:00)
[2017-10-10 07:48] LABS: HEMATOCRIT 31.4 % (37-47); HEMOGLOBIN 11.1 g/dL (12.0-16.0); MEAN CELL VOLUME 91.3 fL (80-100); MEAN CORPUSCULAR HEMOGLOBIN 32.3 pg (25-34); MEAN CORPUSCULAR HGB CONC 35.4 g/dl (32-36); MEAN PLATELET VOLUME 8.8 fL (7.4-10.4); PLATELET COUNT 232 K/uL (130-400); RED CELL DISTRIBUTION WIDTH CV 12.8 % (11.5-14.5); RED CELL DISTRIBUTION WIDTH SD 42.7 fL (36.4-46.3); WHITE BLOOD COUNT 11.42 K/uL (4.8-10.8)
[2017-10-10] MEDS: PRENATAL VITAMIN TAB PO SCH (08:09)
[2017-10-10] MEDS: FERROUS SULFATE 325 MG TAB PO SCH (08:10)
[2017-10-10] MEDS: DOCUSATE SODIUM 100 MG CAP PO SCH (08:10)
[2017-10-10 08:38] VITALS: BP 110/65; PULSE 67; TEMP 36.7
--- NOTE | 2017-10-10 09:48 | Progress Note ---
Subjective Oct 10, 2017. Subjective conversation w/ patient, physical exam, lab review Ambulation: ambulating normally Voiding: no voiding problems Passing Gas: Yes Diet Tolerance: Regular Diet Lochia: Small Feeding Type: Breast Feeding Pain: none Objective Vital Signs Date Time Temp Pulse Resp B/P (MAP) Pulse Ox O2 Delivery O2 Flow Rate FiO2 10/10/17 08:38 36.7 67 20 110/65 (80) Room Air 10/09/17 23:05 37.0 82 20 102/61 (75) Room Air 10/09/17 23:05 Room Air 10/09/17 20:00 36.8 82 18 108/69 (82) Room Air 10/09/17 16:33 Room Air 10/09/17 16:30 36.8 71 18 108/69 (82) 10/09/17 11:30 36.8 65 16 115/68 (84) Physical Exam General Appearance: WELL-APPEARING, WD/WN, NO APPARENT DISTRESS Abdomen: non tender, soft Fundus: Firm, Non-Tender, Relation to Umbilicus (at u) Extremities: non-tender, normal inspection, no pedal edema Laboratory Results Last 24 Hours Test 10/10/17 07:30 White Blood Count 11.42 K/uL Red Blood Count 3.44 M/uL Hemoglobin 11.1 g/dL Hematocrit 31.4 % Mean Corpuscular Volume 91.3 fL Mean Corpuscular Hemoglobin 32.3 pg Mean Corpuscular Hemoglobin Concent 35.4 g/dl RDW Standard Deviation 42.7 fL RDW Coefficient of Variation 12.8 % Platelet Count 232 K/uL Mean Platelet Volume 8.8 fL Assessment and Plan Problem List Medical Problems: (1) Allergic reaction Status: Acute (2) Right ovarian cyst Status: Acute (3) Suprapubic abdominal pain Status: Acute Post- Day#: 2 Continue Routine Care: Doing well. Plan d/c. Instructions given.
[2017-10-10 13:49] VITALS: BP_DIAS 65; PULSE 67; TEMP 36.7
== END 2017-10-10 11:15 | disposition home or self-care (01) | DRG 775 ==
LOC: C.LD 17:41 → C.OPB 17:41 → C.LD 18:08 → C.OPB 18:08 → C.OBG 23:33
PROVIDERS: ADMIT Obstetrics & Gynecology; ATTEND Obstetrics & Gynecology
PROC: 10E0XZZ Delivery of Products of Conception, External Approach (ICD-10-PCS; principal; 2017-10-08)
DX: O80 Encounter for full-term uncomplicated delivery (principal); O09.523 Supervision of elderly multigravida, third trimester; Z3A.40 40 weeks gestation of pregnancy; Z37.0 Single live birth

== ENCOUNTER → 2017-10-28 | Outpatient (CLI) | payer OTHER ==
--- NOTE | 2017-10-29 07:22 | MAMMOGRAPHY REPORT ---
UNILATERAL LEFT DIGITAL DIAGNOSTIC MAMMOGRAM TOMOSYNTHESIS WITH CAD AND TARGETED LEFT ULTRASOUND: 10/01 CLINICAL HISTORY: The patient has a 3-week-old baby and is currently breast-feeding. Before she deli becca her baby she noticed a left breast lump, and is here to undergo evaluation of the lump. She lucia s not noticed any change in size of the lump. She also reports that her baby has had difficulty latc ray and nursing on the left breast. TECHNIQUE: Breast tomosynthesis in addition to standard 2D mammography was performed. Current study was also evaluated with a Computer Aided Detection (CAD) system. Left CC and MLO 2D and tomosynthesi s images were obtained. COMPARISON: Comparison is made to exams dated: 02/08/2014 ultrasound and 08/08/2014 ultrasound - [facility]. BREAST COMPOSITION: The tissue of the left breast is extremely dense, which lowers the sensitivity o f mammography. FINDINGS: A triangle marker rodríguez the site of the palpable lump in the left upper outer quadrant. Th e breast density is diffusely increased with multiple prominent ducts seen throughout the breast, con sistent with lactational changes. The lactational changes significantly reduce the sensitivity of th e exam for the detection of masses. Within the limitations of the exam there are no suspicious harmeet s, calcifications, or areas of architectural distortion in the left breast mammographically. Targeted ultrasound was performed of the area of the palpable lump pointed out by the patient, in the left breast at approximately 12:30, 5 cm from the nipple. There are expected lactational changes se en in this region, with a few small anechoic benign cysts or areas of focal duct ectasia noted, one o f which measures 2 x 1 mm. No suspicious masses or other suspicious sonographic abnormalities are ev ident. IMPRESSION: ACR BI-RADS CATEGORY 2: BENIGN, TARGETED ULTRASOUND ACR BI-RADS CATEGORY 2: BENIGN No suspicious mammographic or sonographic abnormality at the site of the palpable left breast lump po inted out by the patient. Note that the lactational changes reduce the sensitivity of the exam. The re is no mammographic or targeted sonographic evidence of malignancy. Recommend clinical follow-up f or the palpable left breast lump, and recommend routine annual mammography at the age of 40 or when t he patient discontinues breast-feeding. The patient has been verbally notified of the results. Approximately 10% of breast cancers are not detected with mammography. A negative mammographic report should not delay biopsy if a clinically suggestive mass is present. Kelly Johnson M.D. ah/:10/28/2017 14:28:32 [place]: Laura ZAVALETA(Ishan)(Fito), [facility] letter sent: Normal 1/2 BI-RADS Code: ACR BI-RADS Category 2: Benign Ultrasound BI-RADS: ACR BI-RADS Category 2: Benign
== END | disposition home or self-care (01) ==
LOC: C.MAMM 11:22
PROVIDERS: ATTEND Obstetrics & Gynecology
DX: N63.20 Unspecified lump in the left breast, unspecified quadrant (principal)

== ENCOUNTER → 2017-12-03 | Outpatient (CLI) | payer OTHER | END | disposition home or self-care (01) | LOC: C.PAPS 17:39 | PROVIDERS: ATTEND Obstetrics & Gynecology | DX: Z12.4 Encounter for screening for malignant neoplasm of cervix (principal) ==